=== PATIENT | female | born 1985 | race Hispanic/Latino ===

== ENCOUNTER 2017-01-08 12:36 | Inpatient (IN) | payer MEDICAID ==
[2017-01-08 14:39] LABS: BASO % 0.3 % (0.0-2.0); EOS # 0.2 K/uL (0.0-0.7); EOS % 1.4 % (0.0-4.0); HEMATOCRIT 32.7 % (34.0-47.0); LYMPH # 2.3 K/uL (1.0-4.3); LYMPH % 19.5 % (20.0-40.0); MEAN CELL VOLUME 93.8 fL (81.0-99.0); MEAN CORPUSCULAR HEMOGLOBIN 30.8 pg (27.0-31.0); MEAN CORPUSCULAR HGB CONC 32.8 g/dL (33.0-37.0); MONO # 0.7 K/uL (0.0-0.8); MONO % 6.3 % (0.0-10.0); WHITE BLOOD COUNT 11.8 K/uL (4.8-10.8)
--- NOTE | 2017-01-08 14:44 | C.PDOC ---
History Of Present Illness 31 yr old female presents to the ER requesting detox from heroin and Subutux. Patient is a pre-screened. Reports uses IV heroin and last use was 4 days ago. Patient is approximately 26 weeks . Patient reports of right molar pain and took Tylenol #3. Patient denies fever, chills, chest pain, SOB, nausea, vomiting, abdominal pain, pelvic pain, vaginal bleeding, weakness or numbness. Denies SI or HI. Time Seen by Provider: 01/08/17 13:00 Chief Complaint (Nursing): Substance Abuse History Per: Patient History/Exam Limitations: no limitations Onset/Duration Of Symptoms: Days (Last use was 4 days ago) Suicide/Self Injury Attempted (Context): None Past Medical History Reviewed: Historical Data, Nursing Documentation, Vital Signs Vital Signs: Last Vital Signs Temp 98 F 01/08/17 12:43 Pulse 98 H 01/08/17 12:43 Resp 20 01/08/17 12:43 BP 151/95 H 01/08/17 12:43 Pulse Ox 100 01/08/17 15:55 - Medical History PMH: Hepatitis (c) Family History: States: No Known Family Hx - Social History Hx Alcohol Use: No Hx Substance Use: Yes - Immunization History Hx Tetanus Toxoid Vaccination: No Hx Influenza Vaccination: No Hx Pneumococcal Vaccination: No Review Of Systems Except As Marked, All Systems Reviewed And Found Negative. Constitutional: Negative for: Fever, Chills ENT: Positive for: Other ((+) Right molar pain) Cardiovascular: Negative for: Chest Pain Respiratory: Negative for: Shortness of Breath Gastrointestinal: Negative for: Nausea, Vomiting, Abdominal Pain Genitourinary: Negative for: Vaginal Bleeding, Pelvic Pain Neurological: Negative for: Weakness, Numbness Physical Exam - Physical Exam Appears: Non-toxic, No Acute Distress Skin: Warm, Dry, No Rash Head: Atraumatic, Normacephalic Oral Mucosa: Moist Teeth: Tender To Palpation (Right lower #31 molar cavity) Gingiva: No Erythema, No Tender, No Bleeding Cardiovascular: Rhythm Regular, No Murmur Respiratory: Normal Breath Sounds, No Rales, No Rhonchi, No Stridor, No Wheezing Gastrointestinal/Abdominal: Soft, No Tenderness, No Guarding, No Rebound, Other ((+) Gravid) Extremity: Normal ROM, No Swelling Neurological/Psych: Oriented x3, Normal Speech, Normal Motor ED Course And Treatment - Laboratory Results Result Diagrams: 01/08/17 14:33 01/08/17 14:33 O2 Sat by Pulse Oximetry: 100 (RA) Pulse Ox Interpretation: Normal Progress Note: PLAN: Blood work, UA, UDS ordered and reviewed. As per protocol , patient will be seen by OB ED prior to detox. UA shows +3 leuk, WBCs and bacteria - will treat with PO Macrobid. Recommend Macrobid 100mg PO BID x 7 days. 3:50pm- Patient medically cleared. 4:35pm- Patient accepted for detox admission, pending ob evaluation in OB ED. Disposition - Disposition Forms: [employer] ([place]) - Scribe Statement The provider has reviewed the documentation as recorded by the Ivy Grady Provider Attestation: All medical record entries made by the Scribe were at my direction and personally dictated by me. I have reviewed the chart and agree that the record accurately reflects my personal performance of the history, physical exam, medical decision making, and the department course for this patient. I have also personally directed, reviewed, and agree with the discharge instructions and disposition.
[2017-01-08 14:50] LABS: RBC URINE 34 /hpf (0-3); URINE BACTERIA RARE (<OCC); URINE BILIRUBIN NEGATIVE (NEGATIVE); URINE COLOR Yellow (YELLOW); URINE GLUCOSE (UA) NORMAL (Normal); URINE KETONE NEGATIVE (NEGATIVE); URINE LEUKOCYTE ESTERASE 3+ Leu/uL (Negative); URINE PROTEIN 1+ mg/dL (NEGATIVE); URINE UROBILINOGEN NORMAL mg/dL (0.2-1.0); WBC CLUMPS RARE /hpf; WBC URINE 94 /hpf (0-5)
[2017-01-08 14:51] LABS: URINE BLOOD 1+ (NEGATIVE)
[2017-01-08 15:05] LABS: ALCOHOL SERUM < 10 mg/dl (0-10); ALKALINE PHOSPHATASE 76 U/L (38-126); ALT/SGPT 37 U/L (9-52); AST/SGOT 29 U/L (14-36); BILIRUBIN,TOTAL 0.6 mg/dL (0.2-1.3); BLOOD UREA NITROGEN 11 mg/dL (7-17); CALCIUM 8.2 mg/dl (8.6-10.4); CARBON DIOXIDE 22 mmol/L (22-30); CHLORIDE 101 mmol/L (98-107); GFR AFRICAN-AMERICAN > 60; GLUCOSE,RANDOM 81 mg/dL (65-105); POTASSIUM 3.8 mmol/L (3.6-5.2); SODIUM 133 mmol/L (132-148); TOTAL PROTEIN 6.3 g/dL (6.3-8.3)
[2017-01-08 15:07] LABS: ALB/GLOB RATIO 1.1 (1.0-2.1)
--- NOTE | 2017-01-08 17:49 | PCM.BM ---
<Nela Arnett - Last Filed: 01/08/17 17:47> Treatment Plan Problems - Problems identified on initial assessmt potiential for opiate withdrawal Date Initiated: 01/08/17 Time Initiated: 17:48 Assessment reference: NA Status: Active Treatment assets and liabiliti Patient Assests: ADL independent, physically healthy Patient Liabilities: substance abuse, other - Milieu Protocol Maintain good personal hygiene: daily Encourage regular showers, daily Remind patient to perform daily oral care, daily Assist patient to perform ADL's Maintain personal safety: every shift Educate patient to report safety concerns to staff, every shift Monitor environment for contraband/sharps Medication safety: Monitor for expected outcome, potential side effects: every shift, Assess barriers to learning: every shift, Assess readiness for medication education: every shift <Ismael Esquivel - Last Filed: 01/09/17 00:32> - Diagnosis (1) Opioid use disorder, severe, dependence Status: Acute Interventions: 01/09/17 00:32 * Assess 7x/week regarding severity of withdrawal * Educate regarding risks, benefits, side effects and alternatives of medications * Use Motivational Interviewing for abstinence * Use CBT for relapse prevention * Medication management for withdrawal symptoms * Encourage medication assisted treatment * (2) Cocaine use disorder, severe, dependence Status: Acute Interventions: 01/09/17 00:32 * Educate regarding risks, benefits, side effects and alternatives of medications * Use Motivational Interviewing for abstinence * Use CBT for relapse prevention * Medication management for withdrawal symptoms * Encourage medication assisted treatment *
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
[2017-01-08] MEDS: Aluminum Hydroxide/Magnesium Hydroxide Susp (30 mL) PO PRN (23:51)
[2017-01-09] MEDS ORDERED: Buprenorphine Hydrochloride 2 mg SL ONE ×2 (05:09→06:45)
--- NOTE | 2017-01-09 09:44 | PCM.PYCHPN ---
Psychiatric Progress Note - Psychiatric Progress Note Patient seen today, length of contact: 15 min Patient Chief Complaint: I am still withdrawing.' Problems Identified/Issues Discussed: Patient seen and evaluated, chart reviewed and discussed with the nurse. Patient reports irritable mood and reports withdrawal symptoms including nausea , headaches, cramps, joint pains and sweating. She received an extra dose last night. She reports improvement in her mood and denies any feelings of hopelessness and helplessness. She denies any suicidal ideation/homicidal ideation or any AVH. She is taking medication and denies any side effects. She was seen by OBGyn for her and heart monitoring was done. She needs more time for stabilization. Supportive therapy and psychoeducation were given. Medication Change: Yes (subutex taper) Medical Record Reviewed: Yes Mental Status Examination - Cognitive Function Orientation: Person, Place, Situation, Time Memory: Intact Attention: WNL Concentration: Poor Association: WNL Fund of Knowledge: Poor - Mood Mood: Anxious - Affect Affect: Constricted - Speech Speech: Soft - Formal Thought Process Formal Thought Process: No Impairment - Suicidal Ideation Suicidal Ideation: No - Homicidal Ideation Homicidal Ideation: No Goal/Treatment Plan - Goal/Treatment Plan Need for Continued Stay: Severe depression anxiety, Severe functional impairment Progress Toward Problem(s) and Goals/Treatment Plan: Opioid use d/o - severe Cocaine use d/o - severe Subutex detox prn meds Support and psychoed Attend groups and activities GA and CBT Monitor signs and symptoms ObGyn on board - Smoking Cessation Smoking Cessation Initiated: No
[2017-01-09] MEDS: Prenatal Multivit/Folic Acid/Iron Tab PO SCH (10:18)
--- NOTE | 2017-01-09 16:07 | US ---
PROCEDURE: OB Pelvic Ultrasound HISTORY: wellbeing COMPARISON: None available. FINDINGS: UTERUS: Single Live intrauterine gestation. Placenta: Posterior BPD: 6.0 centimeter, equivalent to 24 weeks, 3 days gestation AC: 19.9 centimeter, equivalent to 24 weeks, 4 days gestation HC: 21.9 centimeter, equivalent to 24 weeks, 0 days gestation FL: 4.1 centimeter, equivalent to 23 weeks, 2 days gestation age (Ultrasound estimated): 24 weeks, 1 day Date of delivery (Ultrasound estimated) : 04/30/2017 Heart rate: 136 bpm. Rhonda-gestational hemorrhage: None. Uterus measures cm. No mass CERVIX: Long and closed. No cervical abnormality seen. RIGHT OVARY: Not visualized LEFT OVARY: Not visualized FREE FLUID: None. OTHER FINDINGS: Visualized anatomy is within normal limits. GAVIN 10 centimeter. IMPRESSION: Single live intrauterine gestation as described above.
[2017-01-09] MEDS: Aluminum Hydroxide/Magnesium Hydroxide Susp (30 mL) PO PRN (17:19)
[2017-01-09] MEDS: Benzocaine 7.5% 9.4 G TUBE MM PRN (20:10)
[2017-01-10] MEDS: Aluminum Hydroxide/Magnesium Hydroxide Susp (30 mL) PO PRN (08:27)
[2017-01-10] MEDS: Buprenorphine Hydrochloride 2 mg SL SCH (09:31)
[2017-01-10] MEDS: Prenatal Multivit/Folic Acid/Iron Tab PO SCH (09:31)
[2017-01-10] MEDS: Benzocaine 7.5% 9.4 G TUBE MM PRN ×2 (10:54→19:32)
[2017-01-10] MEDS: Bacitracin Ointment 30 GM TUBE TOP PRN ×2 (12:19→19:30)
[2017-01-10] MEDS: Clotrimazole 1% Cream(30 gm) TOP SCH ×2 (12:19→18:37)
--- NOTE | 2017-01-10 13:12 | PCM.PYCHPN ---
Psychiatric Progress Note - Psychiatric Progress Note Patient seen today, length of contact: 18 min Patient Chief Complaint: "Not good today" Problems Identified/Issues Discussed: The pt is seen, chart reviewed, case discussed with staff. The pt is compliant with medications and reports no side-effects. Symptoms are improving slowly but needs more time to stabilize. After care discussed, support and psychoeducation given. Risks of detox, meds and relapse during discussed again. Medication Change: Yes (subutex taper) Medical Record Reviewed: Yes Mental Status Examination - Cognitive Function Orientation: Person, Place, Situation, Time Memory: Intact Attention: WNL Concentration: Poor Association: WNL Fund of Knowledge: Poor - Mood Mood: Anxious - Affect Affect: Constricted - Speech Speech: Soft - Formal Thought Process Formal Thought Process: No Impairment - Suicidal Ideation Suicidal Ideation: No - Homicidal Ideation Homicidal Ideation: No Goal/Treatment Plan - Goal/Treatment Plan Need for Continued Stay: Severe depression anxiety, Severe functional impairment Progress Toward Problem(s) and Goals/Treatment Plan: Subutex detox prn meds Support and psychoed Attend groups and activities AR and CBT OB consult appreciated refer to 30-day rehab 33 min Estimated Date of D/C: 01/12/17
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
[2017-01-11] MEDS: Aluminum Hydroxide/Magnesium Hydroxide Susp (30 mL) PO PRN ×2 (01:53→08:36)
[2017-01-11] MEDS: Benzocaine 7.5% 9.4 G TUBE MM PRN ×2 (08:56→11:24)
[2017-01-11] MEDS: Buprenorphine Hydrochloride 2 mg SL SCH (09:31)
[2017-01-11] MEDS: Prenatal Multivit/Folic Acid/Iron Tab PO SCH (09:31)
[2017-01-11] MEDS: Clotrimazole 1% Cream(30 gm) TOP SCH ×2 (09:31→18:37)
[2017-01-11] MEDS: Bacitracin Ointment 30 GM TUBE TOP PRN (14:56)
--- NOTE | 2017-01-11 22:29 | PCM.PYCHPN ---
Psychiatric Progress Note - Psychiatric Progress Note Patient seen today, length of contact: 18 min Patient Chief Complaint: "Better" Problems Identified/Issues Discussed: The pt is seen, chart reviewed, case discussed with staff. Support given, CBT and CA used briefly No new symptoms reported, improving slowly and needs more time No SEs from medications, risks discussed. After care discussed - [place] on Sunday, will stay with BF at all times until then Medication Change: Yes (subutex taper) Medical Record Reviewed: Yes Mental Status Examination - Cognitive Function Orientation: Person, Place, Situation, Time Memory: Intact Attention: WNL Concentration: Poor Association: WNL Fund of Knowledge: Poor - Mood Mood: Anxious - Affect Affect: Constricted - Speech Speech: Soft - Formal Thought Process Formal Thought Process: No Impairment - Suicidal Ideation Suicidal Ideation: No - Homicidal Ideation Homicidal Ideation: No Goal/Treatment Plan - Goal/Treatment Plan Need for Continued Stay: Severe depression anxiety, Severe functional impairment Progress Toward Problem(s) and Goals/Treatment Plan: Subutex detox prn meds Support and psychoed Attend groups and activities CA and CBT OB consult appreciated Estimated Date of D/C: 01/12/17
[2017-01-12 06:07] VITALS: RESP 20
--- NOTE | 2017-01-12 08:41 | PCM.PYCHDC ---
Mental Status Examination - Mental Status Examination Orientation: Person, Place, Situation, Time Memory: Intact Mood: Anxious Affect: Broad Speech: Appropriate Attention: WNL Concentration: WNL Association: WNL Fund of Knowledge: WNL Formal Thought Process: No Impairment Suicidal Ideation: No Current Homicidal Ideation?: No Discharge Summary - Discharge Note Reason for Hospitalization: Heroin detox Consultations:: List each consultation separately and include: 1. Reason for request. 2. Findings. 3. Follow-up Summary of Hospital Course include:: 1. Description of specific treatment plan utilized for patients during their course of treatmen. 2. Summarize the time- course for resolution of acute symptoms and/or regressed behaviors. 3. Describe issues identified and worked on during hospitalization. 4. Describe medication utilized. 5. Describe medical problems identified and treated. 6. Reassessment of suicide risk Summary of Hospital Course: The pt is seen, chart reviewed and case discussed On admission: Her BF was also contacted with her permission, he was with her. She is a 31 yo WF, single with one son who was adopted away, unemployed and lives with BF She is 6 months She reports using 20 bags iv heroin "on average" (BF corrected as "40" but she said that was rare). The pt saw a Suboxone dr and got on 16 mg subutex but she had been using pn and off and last dose was 2 days ago 2 mg, but she took tylenol #3 lately She wants to detox and go to a 30-day rehab and then IOP She refused MAT but will think again later. She understood all the risks and benefits of detox and meds during . She also uses cocaine, cigarette but denies other drugs She had been to numerous rehabs and detoxes before but she also claims she has a few year hx with opioids, her drug of choice was cocaine per BF. Past psych hx: Denies Family psych hx: Fa was an alcoholic Medical hx: Hep C, [facility] [place] in 2007 - had trach etc but OK now Hospital course: The pt was admitted and started on treatment with psychotherapy, support, psychoeducation and medications. SD and CBT used. The pt attended groups and activities, as well as milieu therapy. All the risks (including subutex and detox during ) and benefits of medications are discussed and the patient understood and agreed. The pt improved with the treatments provided. After care discussed with the patient. her plans were a bit shaky: "[facility] I know a counselor there and they said I can come" (no one called us back from [facility]) Then, she said her back-up is [place] but since it is outpt it is a high risk situation - but she claims her BF will shadow her 04/09. She will even go to his job daytime. Risks of relapse discussed. Relapse prevention discussed. She doesn't want MAT. - Final Diagnosis (DSM 5) Condition upon Discharge: GOOD DSM 5: Opioid withdrawal opioid use d/o -severe Cocaine use d/o - severe Disposition: HOME/ ROUTINE Follow-up Treatment Plan: Continue vit See OB regularly Follow after care plan as discussed: [facility] Go to daily Use relapse prevention skills Return to ER or call 911 if suicidal, homicidal or symptoms relapse. Stay away from stress, alcohol and drugs. See primary doctor regularly and get labs.
[2017-01-12] MEDS: Prenatal Multivit/Folic Acid/Iron Tab PO SCH (09:07)
[2017-01-12] MEDS: Buprenorphine Hydrochloride 2 mg SL SCH (09:07)
[2017-01-12] MEDS: Clotrimazole 1% Cream(30 gm) TOP SCH (09:08)
[2017-01-12 10:39] VITALS: BP 130/87; PULSE 88; TEMP 97.5; O2SAT 100
== END 2017-01-12 11:00 | disposition home or self-care (01) | DRG 886 ==
LOC: C.ER 12:36 → C.7D 17:29 → C.4LDOR 18:12 → C.7D 20:22
PROVIDERS: ADMIT Psychiatry & Neurology Psychiatry; ATTEND Psychiatry & Neurology Psychiatry
PROC: HZ2ZZZZ Detoxification Services for Substance Abuse Treatment (ICD-10-PCS; principal; 2017-01-08)
PROC: HZ52ZZZ Individual Psychotherapy for Substance Abuse Treatment, Cognitive-Behavioral (ICD-10-PCS; 2017-01-08)
PROC: HZ59ZZZ Individual Psychotherapy for Substance Abuse Treatment, Supportive (ICD-10-PCS; 2017-01-08)
PROC: HZ56ZZZ Individual Psychotherapy for Substance Abuse Treatment, Psychoeducation (ICD-10-PCS; 2017-01-08)
DX: O99.322 Drug use complicating pregnancy, second trimester (principal); F14.20 Cocaine dependence, uncomplicated; F11.23 Opioid dependence with withdrawal; O99.332 Smoking (tobacco) complicating pregnancy, second trimester; F17.210 Nicotine dependence, cigarettes, uncomplicated; Z3A.26 26 weeks gestation of pregnancy

== ENCOUNTER 2017-06-13 01:12 | Inpatient (IN) | payer MEDICAID ==
--- NOTE | 2017-06-13 01:25 | C.PDOC ---
History Of Present Illness 31 year old female presents to the ED requesting detox for heroin and subutex. Patient admits to using subutex today prior to arrival. Patient denies SI/HI, hallucinations, CP, palpitations, SOB. Time Seen by Provider: 06/13/17 01:25 Chief Complaint (Nursing): Substance Abuse History Per: Patient History/Exam Limitations: no limitations Onset/Duration Of Symptoms: Hrs Current Symptoms Are (Timing): Still Present Suicide/Self Injury Attempted (Context): None Modifying Factor(s): Narcotics, Other (Heroin, subutex) Severity: None Associated Symptoms: denies: Depression, Suicidal Thoughts, Suicidal Plan Involuntary Hold By: None Recent travel outside of the [place]: No Additional History Per: Patient Past Medical History Reviewed: Historical Data, Nursing Documentation, Vital Signs Vital Signs: Last Vital Signs Temp 98.0 F 06/13/17 01:22 Pulse 77 06/13/17 01:22 Resp 18 06/13/17 01:22 BP 136/86 06/13/17 01:22 Pulse Ox 97 06/13/17 01:50 - Medical History PMH: Hepatitis (c) Denies: Diabetes, HIV, HTN, Seizures, Sexually Transmitted Disease Surgical History: No Surg Hx - [facility] Procedures DETOXIFICATION SERVICES FOR SUBSTANCE ABUSE TREATMENT (01/08/17) INDIV PSYCHOTHERAPY FOR SUBSTANCE ABUSE TREATMENT, SUPPORT (01/08/17) INDIV PSYCHOTHERAPY FOR SUBSTANCE ABUSE, COGNITIV BEHAVIORAL (01/08/17) INDIV PSYCHOTHERAPY FOR SUBSTANCE ABUSE, PSYCHOEDUCATION (01/08/17) Family History: States: Unknown Family Hx - Social History Hx Alcohol Use: No Hx Substance Use: Yes - Immunization History Hx Tetanus Toxoid Vaccination: No Hx Influenza Vaccination: No Hx Pneumococcal Vaccination: No Review Of Systems Constitutional: Negative for: Fever, Chills Cardiovascular: Negative for: Chest Pain Respiratory: Negative for: Shortness of Breath Gastrointestinal: Negative for: Abdominal Pain Skin: Negative for: Rash Psych: Negative for: Depression, Suicidal ideation Physical Exam - Physical Exam Appears: Non-toxic, No Acute Distress Skin: Warm, Dry Head: Normacephalic Eye(s): bilateral: Normal Inspection Nose: No Discharge Oral Mucosa: Moist Neck: Supple Chest: Symmetrical Cardiovascular: Rhythm Regular, No Murmur Respiratory: No Rales, No Rhonchi, No Wheezing Gastrointestinal/Abdominal: Soft, No Tenderness, No Guarding, No Rebound Back: Normal Inspection Extremity: Bilateral: Normal Color And Temperature, Normal ROM Neurological/Psych: Oriented x3, Normal Motor, Normal Sensation Gait: Steady ED Course And Treatment - Laboratory Results Result Diagrams: 06/13/17 01:40 06/13/17 01:40 O2 Sat by Pulse Oximetry: 97 (On RA) Pulse Ox Interpretation: Normal Progress Note: Plan: - Labs. - UA. - Crisis evaluation Disposition Discussed With Dr.: Iftikhar Qiu Comment: accepted the pt on his service and took over the care at 4 AM Doctor Will See Patient In The: Hospital Counseled Patient/Family Regarding: Studies Performed, Diagnosis - Disposition Disposition: HOSPITALIZED Disposition Time: 01:25 Condition: FAIR Forms: [employer] (Portuguese) - Clinical Impression Clinical Impression: Drug dependence, Opioid use disorder, severe, dependence, Cocaine use disorder , severe, dependence - Scribe Statement The provider has reviewed the documentation as recorded by the Scribe Fito Hutton All medical record entries made by the Scribe were at my direction and personally dictated by me. I have reviewed the chart and agree that the record accurately reflects my personal performance of the history, physical exam, medical decision making, and the department course for this patient. I have also personally directed, reviewed, and agree with the discharge instructions and disposition. Decision To Admit - Pt Status Changed To: Hospital Disposition Of: Inpatient - Admit Certification Admit to Inpatient:: After my assessment, the patient will require hospitalization for at least two midnights. This is because of the severity of symptoms shown, intensity of services needed, and/or the medical risk in this patient being treated as an outpatient. - InPatient: Physician Admission Certification: I certify that this patient requires 2 or more midnights of care for the following reason:: After my assessment, the patient will require hospitalization for at least two midnights. This is because of the severity of symptoms shown, intensity of services needed, and/or the medical risk in this patient being treated as an outpatient. - . Bed Request Type: Detox Admitting Physician: Iftikhar Qiu Patient Diagnosis: Drug dependence, Opioid use disorder, severe, dependence, Cocaine use disorder , severe, dependence
[2017-06-13 01:26] VITALS: BMI 20.3
[2017-06-13 01:47] LABS: HCG,QUALITATIVE URINE NEGATIVE (NEGATIVE)
[2017-06-13 01:48] LABS: BASO # 0.1 K/uL (0.0-0.2); BASO % 1.4 % (0.0-2.0); EOS # 0.3 K/uL (0.0-0.7); EOS % 4.6 % (0.0-4.0); LYMPH # 3.1 K/uL (1.0-4.3); LYMPH % 46.3 % (20.0-40.0); MEAN CELL VOLUME 93.1 fL (81.0-99.0); MEAN CORPUSCULAR HEMOGLOBIN 31.8 pg (27.0-31.0); MEAN CORPUSCULAR HGB CONC 34.1 g/dL (33.0-37.0); MEAN PLATELET VOLUME 10.2 fL (7.2-11.7); MONO # 0.7 K/uL (0.0-0.8); MONO % 11.3 % (0.0-10.0); NEUT # 2.4 K/uL (1.8-7.0); NEUT % 36.4 % (50.0-75.0); NRBC % 0.1 % (0.0-2.0); RBC 4.07 Mil/uL (3.80-5.20); RED CELL DISTRIBUTION WIDTH 14.6 % (11.5-14.5); WHITE BLOOD COUNT 6.6 K/uL (4.8-10.8)
[2017-06-13 01:53] LABS: SQUAMOUS EPITHIAL < 1 /hpf (0-5); URINE BILIRUBIN NEGATIVE (NEGATIVE); URINE BLOOD NEGATIVE (NEGATIVE); URINE CLARITY Clear (Clear); URINE COLOR Yellow (YELLOW); URINE GLUCOSE (UA) NORMAL (Normal); URINE LEUKOCYTE ESTERASE TRACE Leu/uL (Negative); URINE PROTEIN NEGATIVE (NEGATIVE)
[2017-06-13 01:54] LABS: HEMOGLOBIN 12.9 g/dL (11.0-16.0)
[2017-06-13 02:02] LABS: BARBITURATES, UR NEGATIVE (NEGATIVE); BENZODIAZEPINES, UR NEGATIVE (NEGATIVE); OPIATES, UR NEGATIVE (NEGATIVE); PHENCYCLIDINE, UR NEGATIVE (NEGATIVE)
[2017-06-13 02:48] LABS: ALB/GLOB RATIO 1.1 (1.0-2.1); ALBUMIN 3.8 g/dL (3.5-5.0); ALT/SGPT 90 U/L (9-52); AST/SGOT 79 U/L (14-36); BLOOD UREA NITROGEN 9 mg/dL (7-17); CALCIUM 8.7 mg/dl (8.6-10.4); GFR AFRICAN-AMERICAN > 60; GFR NON-AFRICAN AMERICAN > 60
--- NOTE | 2017-06-13 06:43 | PCM.BM ---
<ToritoSerena sanders - Last Filed: 06/13/17 06:43> Treatment Plan Problems - Problems identified on initial assessmt Opiate Dependence Date Initiated: 06/13/17 Time Initiated: 06:43 Assessment reference: NA Status: Active Treatment assets and liabiliti Patient Assests: ADL independent, physically healthy Patient Liabilities: substance abuse - Milieu Protocol Maintain good personal hygiene: daily Encourage regular showers, daily Remind patient to perform daily oral care, daily Assist patient to perform ADL's Maintain personal safety: every shift Educate patient to report safety concerns to staff, every shift Monitor environment for contraband/sharps Medication safety: Monitor for expected outcome, potential side effects: every shift, Assess barriers to learning: every shift, Assess readiness for medication education: every shift <Mariajose Ross - Last Filed: 06/13/17 11:36> Family Contact Family involvement: Famliy/SO not involved - Goals for Treatment Patient goals for treatment: Complete detox and apply for a rehab program. Discharge/Continuing Care - Education Needs Education Needs: Patient Medication, Patient Diagnosis/Disease Process, Patient Coping Skills, Patient Anger Management skills, Patient Placement options, Patient Community resources - Discharge Discharge Criteria: No longer exhibiting s/s of withdrawal, Reduction of target symptoms Discharge to:: Substance Abuse Rehab - Treatment Team Participation Patient/Family/SO Statement: 06/13/17 11:37 "I gotta go straight from here to inpatient..." Discussed with Family/SO: No Was Patient/Family/SO present at Treatment Team Meeting: Yes <Ismael Esquivel - Last Filed: 06/16/17 11:54> - Diagnosis (1) Cocaine use disorder, severe, dependence Status: Acute Interventions: 06/16/17 11:54 * Assess 7x/week regarding severity of withdrawal * Educate regarding risks, benefits, side effects and alternatives of medications * Use Motivational Interviewing for abstinence * Use CBT for relapse prevention * Medication management for withdrawal symptoms * Encourage medication assisted treatment * (2) Opioid use disorder, severe, dependence Status: Acute Interventions: 06/16/17 11:54 * Assess 7x/week regarding severity of withdrawal * Educate regarding risks, benefits, side effects and alternatives of medications * Use Motivational Interviewing for abstinence * Use CBT for relapse prevention * Medication management for withdrawal symptoms * Encourage medication assisted treatment *
[2017-06-13] MEDS ORDERED: Buprenorphine Hydrochloride 2 mg SL ONE ×2 (10:08→11:00)
[2017-06-13] MEDS ORDERED: Aluminum Hydroxide/Magnesium Hydroxide Susp (30 mL) PO PRN (10:11)
[2017-06-13] MEDS ORDERED: Bacitracin Ointment 30 GM TUBE TOP PRN (16:35)
--- NOTE | 2017-06-14 06:17 | PCM.PSYCH ---
Initial Psychiatric Evaluation - Initial Psychiatric Evaluation Type of Admission: Voluntary Legal Status: Capacity Chief Complaint (in patient's own words): "I need detox" History of Present Illness and Precipitating Events: The pt is seen, chart reviewed and case discussed She is known from a previous admission She is a 31 yo WF, single with one son who was adopted away, unemployed and homeless She is 3 months post-. Baby is with her ex-BF bc of her relapse. She wants to go to an inpt rehab after here She reports using 20 bags iv heroin but she was also on Suboxone 8-18 mg but takes 8 mostly but stopped. She had used sbx before too She also uses cocaine, cigarette but denies other drugs She had been to numerous rehabs and detoxes before but she also claims she has a few year hx with opioids, her drug of choice was cocaine per BF. Past psych hx: Denies Family psych hx: Fa was an alcoholic Medical hx: Hep C, [facility] [place] in 2007 - had trach etc but OK now Current Medications: Active Medications Generic Name Dose Route Start Last Admin Trade Name Freq PRN Reason Stop Dose Admin Al Hydrox/Mg Hydrox/Simethicone 30 ml 06/13/17 10:11 Maalox 30 Ml PO TID PRN Indigestion / Heartburn Bacitracin 0 gm 06/13/17 16:35 06/13/17 21:28 Bacitracin TOP 1 applic BID PRN Administration feet Clonidine HCl 0.1 mg 06/13/17 10:11 Catapres PO Q8 PRN COWS Score More or Equal to 5 Hydroxyzine HCl 50 mg 06/13/17 10:13 06/13/17 21:26 Atarax PO 50 mg Q6H PRN Administration Anxiety Ibuprofen 600 mg 06/13/17 14:54 06/13/17 21:26 Motrin Tab PO 600 mg TID PRN Administration moderate pain Loperamide HCl 2 mg 06/13/17 10:11 Imodium PO Q8 PRN Diarrhea Nicotine 1 patch 06/13/17 10:30 06/13/17 10:53 Nicoderm Cq TD 1 patch DAILY ELISEO Administration Ondansetron HCl 4 mg 06/13/17 10:11 Zofran Tab PO Q8 PRN Nausea/Vomiting Trazodone HCl 100 mg 06/13/17 10:13 06/13/17 21:26 Desyrel PO 100 mg HS PRN Administration Insomnia Past Psychiatric History - Past Psychiatric History Previous Treatment History: None Pertinent Medical Hx (Current Medical&Sleep Prob, Allergies): Allergies Allergy/AdvReac Type Severity Reaction Status Date / Time No Known Allergies Allergy Verified 06/13/17 01:26 No Known Home Med 06/13/17 Review of Systems - Psychiatric Psychiatric: Abnormal Sleep Pattern, Anhedonia, Anxiety, Irritability. absent: Hallucinations, Homicidal Ideation, Suicidal Ideation Mental Status Examination - Personal Presentation Personal Presentation: Looks stated age (unkempt) - Affect Affect: Constricted - Motor Activity Motor Activity: Calm - Reliability in Providing Information Reliability in Providing Information: Fair - Speech Speech: Organized - Mood Mood: Anxious - Formal Thought Process Formal Thought Process: No Impairment - Cognitive Functions Orientation: Person, Place, Situation, Time Sensorium: Alert Attention/Concentration: Attentive Estimate of Intelligence: Average Judgement: Intact, as evidence by: Insight regarding need for hospitalization Memory: Recent intact, as evidence by: Ability to recall events of the day, Remote intact, as evidenced by: Abilit to recall sig. life events - Risk Risk: Withdrawal, Diminished functioning - Strength & Assets Inventory Strength & Assets Inventory: Cooperative - Limitations Limitations: Other DSM 5 DX - DSM 5 DSM 5 Diagnosis: Opioid withdrawal Opioid use d/o- severe Cocaine use d/o- severe DAVID personality d/o- unspecified - Recommended/Plan of Treatment Treatment Recommendations and Plan of Treatment: Taper with subutex Gabapentin for augmentation if needed As needed medications All risks, benefits and alternatives of the meds discussed, and the pt agreed and understood. Attend groups and activities Supportive therapy and psychoeducation FL for abstinence CBT for relapse prevention Encourage MAT Refer to rehab or IOP, and self-help groups Smoking cessation with FL Nicotine patch if needed 34 min Projected ELOS: 4-5 days Prognosis: good Discharge Plan and Discharge Criteria: rehab - Smoking Cessation Smoking Cessation Initiated: Yes
[2017-06-14] MEDS: Buprenorphine Hydrochloride 2 mg SL SCH (09:24)
--- NOTE | 2017-06-14 13:52 | PCM.PYCHPN ---
Psychiatric Progress Note - Psychiatric Progress Note Patient seen today, length of contact: 16 min Patient Chief Complaint: "I am anxious" Problems Identified/Issues Discussed: The pt is seen, chart reviewed, case discussed with staff. The pt is compliant with medications and reports no side-effects. Symptoms are improving but needs more time to stabilize. After care discussed, support and psychoeducation given. Medication Change: Yes (detox changes daily) Medical Record Reviewed: Yes Mental Status Examination - Cognitive Function Orientation: Person, Place, Situation, Time Memory: Intact Attention: Poor Concentration: Poor - Mood Mood: Anxious - Affect Affect: Constricted - Speech Speech: Appropriate - Formal Thought Process Formal Thought Process: No Impairment - Suicidal Ideation Suicidal Ideation: No - Homicidal Ideation Homicidal Ideation: No Goal/Treatment Plan - Goal/Treatment Plan Need for Continued Stay: Discharge may exacerbated symptoms, Severe functional impairment Progress Toward Problem(s) and Goals/Treatment Plan: Taper with subutex Gabapentin for augmentation if needed As needed medications All risks, benefits and alternatives of the meds discussed, and the pt agreed and understood. Attend groups and activities Supportive therapy and psychoeducation [place] for abstinence CBT for relapse prevention Encourage MAT Refer to rehab or IOP, and self-help groups Smoking cessation with NC Nicotine patch if needed
[2017-06-15] MEDS: Buprenorphine Hydrochloride 2 mg SL SCH (09:24)
--- NOTE | 2017-06-16 00:20 | PCM.PYCHPN ---
Psychiatric Progress Note - Psychiatric Progress Note Patient seen today, length of contact: 16 min Patient Chief Complaint: "I am still anxious" Problems Identified/Issues Discussed: The pt is seen, chart reviewed, case discussed with staff. Support given, CBT and MT used briefly No new symptoms reported, improving slowly and needs more time No SEs from medications, risks discussed. After care discussed Ativan prn given for anxiety Medication Change: Yes (detox changes daily) Medical Record Reviewed: Yes Mental Status Examination - Cognitive Function Orientation: Person, Place, Situation, Time Memory: Intact Attention: Poor Concentration: Poor Association: WNL Fund of Knowledge: WNL - Mood Mood: Anxious - Affect Affect: Constricted - Speech Speech: Appropriate - Formal Thought Process Formal Thought Process: No Impairment - Suicidal Ideation Suicidal Ideation: No - Homicidal Ideation Homicidal Ideation: No Goal/Treatment Plan - Goal/Treatment Plan Need for Continued Stay: Discharge may exacerbated symptoms, Severe functional impairment Progress Toward Problem(s) and Goals/Treatment Plan: Taper with subutex Gabapentin for augmentation if needed As needed medications All risks, benefits and alternatives of the meds discussed, and the pt agreed and understood. Attend groups and activities Supportive therapy and psychoeducation MT for abstinence CBT for relapse prevention Encourage MAT Refer to rehab or IOP, and self-help groups Smoking cessation with MT Nicotine patch if needed
[2017-06-16] MEDS: Buprenorphine Hydrochloride 2 mg SL SCH (09:17)
[2017-06-16] MEDS: Hydrocortisone 1% Cream (30 GM) TOP SCH (17:24)
--- NOTE | 2017-06-16 23:39 | PCM.PYCHPN ---
Psychiatric Progress Note - Psychiatric Progress Note Patient seen today, length of contact: 15 minutes Patient Chief Complaint: I'm feeling little better. Problems Identified/Issues Discussed: Patient seen, chart reviewed, case discussed with staff. Issues related to illness and treatment were discussed with the patient. Reported compliant with treatment with no adverse affects. Tolerating treatment very well. Reported feeling better. Also reported some vaginal discharge. Aftercare discussed with the patient. At the time of evaluation, patient was awake alert oriented 3, had no delusions , no auditory or visual hallucinations, no suicidal ideations or homicidal ideations. Medical Problems: Hep C Diagnostic Results: Reviewed DSM 5 Symptoms Update: Improving with treatment Medication Change: No Medical Record Reviewed: Yes Mental Status Examination - Cognitive Function Orientation: Person, Place, Situation, Time Memory: Intact Attention: WNL Concentration: WNL Association: WN Fund of Knowledge: [facility] Decription of patient's judgement and insights: Fair - Mood Mood: Anxious (Much less than before) - Affect Affect: Other (Appropriate) - Speech Speech: Appropriate - Formal Thought Process Formal Thought Process: No Impairment Psychotic Thoughts and Behaviors: None - Suicidal Ideation Suicidal Ideation: No - Homicidal Ideation Homicidal Ideation: No Goal/Treatment Plan - Goal/Treatment Plan Need for Continued Stay: Remain at risks for inpatient hospitalization, Discharge may exacerbated symptoms, Severe functional impairment Progress Toward Problem(s) and Goals/Treatment Plan: Improving with treatment. Patient education. Supportive therapy. CBT for relapse prevention. PR for abstinence. AA/NA meetings Estimated Date of D/C: 06/18/17 - Smoking Cessation Smoking Cessation Initiated: Yes
[2017-06-17] MEDS: Hydrocortisone 1% Cream (30 GM) TOP SCH ×2 (09:07→17:30)
[2017-06-17] MEDS: Buprenorphine Hydrochloride 2 mg SL SCH (09:07)
--- NOTE | 2017-06-17 15:29 | PCM.PYCHPN ---
Psychiatric Progress Note - Psychiatric Progress Note Patient seen today, length of contact: 15 minutes Patient Chief Complaint: I'm feeling much better Problems Identified/Issues Discussed: Patient seen, chart reviewed, case discussed with staff. Issues related to illness and treatment were discussed with the patient. Reported compliant with treatment with no adverse affects. Tolerating treatment very well. Reported feeling better. Aftercare discussed with the patient. At the time of evaluation, patient was awake alert oriented 3, had no delusions , no auditory or visual hallucinations, no suicidal ideations or homicidal ideations. Medical Problems: Hepatitis C Diagnostic Results: Reviewed DSM 5 Symptoms Update: Improving with treatment Medication Change: No Medical Record Reviewed: Yes Mental Status Examination - Cognitive Function Orientation: Person, Place, Situation, Time Memory: Intact Attention: WNL Concentration: WNL Association: WNL Fund of Knowledge: [facility] Decription of patient's judgement and insights: Fair - Mood Mood: Anxious (Much less than before) - Affect Affect: Other - Speech Speech: Appropriate - Formal Thought Process Formal Thought Process: No Impairment Psychotic Thoughts and Behaviors: None - Suicidal Ideation Suicidal Ideation: No - Homicidal Ideation Homicidal Ideation: No Goal/Treatment Plan - Goal/Treatment Plan Need for Continued Stay: Remain at risks for inpatient hospitalization, Discharge may exacerbated symptoms, Severe functional impairment Progress Toward Problem(s) and Goals/Treatment Plan: Improvement with treatment. Patient education. Supportive therapy. CBT for relapse prevention. HI for abstinence. AA/NA meetings after discharge from the hospital. Estimated Date of D/C: 06/18/17 - Smoking Cessation Smoking Cessation Initiated: Yes
[2017-06-17] MEDS: Miconazole 2% Vaginal Cream(45 gm) VG SCH ×2 (20:21→21:25)
[2017-06-18] MEDS: Buprenorphine Hydrochloride 2 mg SL SCH (09:01)
[2017-06-18] MEDS: Hydrocortisone 1% Cream (30 GM) TOP SCH (09:04)
[2017-06-18 09:40] VITALS: BP 119/75; PULSE 67; RESP 18; TEMP 97.6; O2SAT 99
--- NOTE | 2017-06-18 18:31 | PCM.PYCHDC ---
Mental Status Examination - Mental Status Examination Orientation: Person, Place, Situation, Time Memory: Intact Mood: Neutral Affect: Other (Appropriate) Speech: Appropriate Attention: WNL Concentration: WNL Association: WNL Fund of Knowledge: WNL Formal Thought Process: No Impairment Description of patient's judgement and insight: Fair Psychotic Thoughts and Behaviors: None Suicidal Ideation: No Current Homicidal Ideation?: No Discharge Summary - Discharge Note Reason for Hospitalization: Opiate use disorder Cocaine use disorder DAVID Laboratory Data: Reviewed Consultations:: List each consultation separately and include: 1. Reason for request. 2. Findings. 3. Follow-up Summary of Hospital Course include:: 1. Description of specific treatment plan utilized for patients during their course of treatmen. 2. Summarize the time- course for resolution of acute symptoms and/or regressed behaviors. 3. Describe issues identified and worked on during hospitalization. 4. Describe medication utilized. 5. Describe medical problems identified and treated. 6. Reassessment of suicide risk Summary of Hospital Course: She is a 31 yo WF, single with one son who was adopted away, unemployed and homeless She is 3 months post-. Baby is with her ex-BF bc of her relapse. She wants to go to an inpt rehab after here She reports using 20 bags iv heroin but she was also on Suboxone 8-18 mg but takes 8 mostly but stopped. She had used sbx before too She also uses cocaine, cigarette but denies other drugs She had been to numerous rehabs and detoxes before but she also claims she has a few year hx with opioids, her drug of choice was cocaine per BF. During her stay in the hospital patient was treated with the buprenorphine taper for opiate withdrawal symptoms. Patient was also treated with other when necessary medications. Patient was attending groups and other activities on the unit. With the above treatment, patient started feeling better, had no withdrawal symptoms and was ready for discharge. At the time of evaluation and discharge, patient was awake alert oriented 3, had no delusions, no auditory or visual hallucinations, no suicidal ideations or homicidal ideations. Patient was discharged in a stable condition. - Final Diagnosis (DSM 5) Condition upon Discharge: STABLE Disposition: HOME/ ROUTINE Follow-up Treatment Plan: AA/NA meetings after discharge from the hospital. Prescriptions/Medication Reconciliation: Gabapentin [Neurontin] 300 mg PO TID #90 cap traZODone [Desyrel] 100 mg PO HS PRN #30 tab PRN Reason: Insomnia - Smoking Cessation Smoking Cessation Medication prescribed: Yes - Antipsychotic Medications Pt discharged on 2 or more routine antipsychotic medications: No
== END 2017-06-18 10:30 | disposition home or self-care (01) | DRG 744 ==
LOC: C.ER 01:12 → C.7D 04:00
PROC: HZ2ZZZZ Detoxification Services for Substance Abuse Treatment (ICD-10-PCS; principal; 2017-06-13)
PROC: HZ59ZZZ Individual Psychotherapy for Substance Abuse Treatment, Supportive (ICD-10-PCS; 2017-06-13)
PROC: HZ46ZZZ Group Counseling for Substance Abuse Treatment, Psychoeducation (ICD-10-PCS; 2017-06-13)
PROC: GZ3ZZZZ Medication Management (ICD-10-PCS; 2017-06-13)
PROC: HZ90ZZZ Pharmacotherapy for Substance Abuse Treatment, Nicotine Replacement (ICD-10-PCS; 2017-06-13)
DX: F11.23 Opioid dependence with withdrawal (principal); F14.20 Cocaine dependence, uncomplicated; F41.1 Generalized anxiety disorder; F17.210 Nicotine dependence, cigarettes, uncomplicated; B18.2 Chronic viral hepatitis C; N89.8 Other specified noninflammatory disorders of vagina; Z59.0 Homelessness